=== PATIENT | female | born 1955 | race Caucasian/White ===

== ENCOUNTER → 2021-02-26 | Outpatient (CLI) | payer MEDICARE, MEDICAID ==
--- NOTE | 2021-02-26 16:17 | Diagnostic Imaging Report ---
EXAMINATION: Left foot at 2:37 p.m. INDICATION: Foot pain. Five views were obtained. There are no prior studies available for comparison. Reportedly the patient has an ulcer associated with the left foot. That also is difficult to visualize on this study. 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 There is also hallux valgus deformity of the first ray. The Lisfranc joint seems well maintained. There does appear to be degenerative disease involving the ankle joint. There is no fracture or acute bony abnormality appreciated. IMPRESSION: 1. There is no evidence for an acute bony abnormality or for bony destruction to suggest osteomyelitis. If clinical concern regarding osteomyelitis persists however, then MRI would be recommended for further study. 2. 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 Dictated by: Dictated on workstation # [id number]
== END ==
LOC: RAD FS 14:11
PROVIDERS: ATTEND Nurse Practitioner Family
DX: L97.529 Non-pressure chronic ulcer of other part of left foot with unspecified severity (principal); M19.072 Primary osteoarthritis, left ankle and foot
CPT/HCPCS: 73630

== ENCOUNTER → 2021-03-15 | Outpatient (CLI) | payer MEDICARE, MEDICAID | LOC: WOUNDCARE 09:03 | PROVIDERS: ATTEND Surgery | DX: L84 Corns and callosities (principal); L97.422 Non-pressure chronic ulcer of left heel and midfoot with fat layer exposed; R41.83 Borderline intellectual functioning | CPT/HCPCS: 99213 ==